=== PATIENT | female | born 1950 | race Caucasian/White ===

== ENCOUNTER 2020-02-28 15:10 | Inpatient (IN) ==
[2020-02-28] MEDS ORDERED: ACETAMINOPHEN 325 MG TABLET PO PRN (15:21)
[2020-02-28] MEDS ORDERED: SIMETHICONE CHEW 125 MG TABLET PO PRN (15:21)
[2020-02-28] MEDS ORDERED: BISACODYL 5 MG TABLET PO PRN (15:21)
[2020-02-28] MEDS ORDERED: POTASSIUM CHLORIDE 20 MEQ TABLET PO PRN (15:21)
[2020-02-28] MEDS ORDERED: ONDANSETRON 4 MG/2 ML VIAL IV PRN (15:21)
[2020-02-28] MEDS ORDERED: MORPHINE 4 MG/1 ML VIAL IV PRN (15:21)
[2020-02-28] MEDS ORDERED: diphenhydrAMINE CAP 25 MG CAPSULE PO PRN (15:21)
[2020-02-28] MEDS ORDERED: guaiFENesin/DM ER 600-30 MG TABLET PO PRN (15:21)
[2020-02-28] MEDS ORDERED: ALUMINUM/MAGNES/SIMETH MAX STR 30 ML UDCUP PO PRN (15:21)
[2020-02-28] MEDS ORDERED: DOCUSATE SODIUM 100 MG CAPSULE PO PRN (15:21)
[2020-02-28] MEDS ORDERED: MAGNESIUM SULF RIDER 4 GM in PREMIX 1 EACH IV PRN (15:21)
[2020-02-28] MEDS ORDERED: ZALEPLON 5 MG CAPSULE PO PRN (15:21)
[2020-02-28] MEDS ORDERED: PROMETHAZINE 25 MG TABLET PO PRN (15:21)
[2020-02-28] MEDS ORDERED: MAGNESIUM SULF RIDER 2 GM in PREMIX 1 EACH IV PRN (15:21)
[2020-02-28] MEDS ORDERED: hydrALAZINE 20 MG/1 ML VIAL IV PRN (15:21)
[2020-02-28 18:13] LABS: Basophils # 0.2 10*3/uL (0.0-0.2); Eosinophils # 1.2 10*3/uL (0.0-0.87); Eosinophils % 6.5 % (0.00-10.9); Hematocrit 39.5 VOL% (35.7-47.0); Hemoglobin 12.2 GM/DL (12.0-16.0); Immature Granulocytes % 0.6 %; Lymphocytes # 2.2 10*3/uL (1.4-4.0); Lymphocytes % 12.4 % (21.3-54.2); Mean Corpuscular HGB Conc 30.9 GM/DL (32-36); Mean Platelet Volume 9.6 FL (9.6-12.0); Monocytes % 6.4 % (1.7-12.7); Neutrophils % 73.1 % (38.7-73.9); Platelet Count 376 T/CUMM (130-400); Red Blood Count 4.44 MC/CUMM (3.8-5.5); Red Cell Distribution Width 13.4 % (9.3-17.3); White Blood Count 17.6 T/CUMM (4-12)
[2020-02-28] MEDS: FUROSEMIDE 40 MG/4 ML VIAL IV SCH (18:19)
[2020-02-28] MEDS: ENOXAPARIN 40 MG/0.4 ML SYRINGE SUBCUT SCH (18:23)
[2020-02-28 18:44] LABS: Albumin 3.3 G/DL (3.4-5.0); Bilirubin,Total 0.5 MG/DL (0.2-1.0); Calcium 8.5 MG/DL (8.5-10.1); Osmolality,Calculated 266.7 MOS/KG (273-304); Risk Ratio 3.16; Thyroid Stimulating Hormone 0.269 uIU/ml (0.358-3.74); Total Protein 7.7 G/DL (6.4-8.3); VLDL CHOLESTEROL 30.8 MG/DL
[2020-02-28 21:25] LABS: Total Protein 7.6 G/DL (6.4-8.3)
[2020-02-28] MEDS: ASPIRIN EC 81 MG TABLET PO SCH (21:32)
[2020-02-29 00:28] LABS: Apearance,Urine CLEAR (Clear); Bacteria,Urine Occasional /HPF (Few); Bilirubin,Urine Negative (Negative); Blood, Urine Negative (Negative); Glucose,Urine (UA) Negative (Negative); Hyaline Casts,Urine 4 /LPF (0-3); Ketones,Urine Negative (Negative); Mucus,Urine Occasional /LPF (Occasional); Nitrite,Urine Negative (Negative); Protein,Urine Negative; RBC,Urine <1 /HPF (0-4); Squamous Epithelial Cell,Urine Occasional /HPF (0-10); Urine Color Straw (Yellow); Urine Specific Gravity 1.012 (1.001-1.035); Urine Urobilinogen < 2.0 EU/DL (0.2-1.0); WBC,Urine 1 /HPF (0-6)
[2020-02-29] MEDS: ALBUTEROL/IPRATROPIUM 3 ML NEB RESP TX SCH ×5 (02:37→19:33)
[2020-02-29 06:52] LABS: Basophils # 0.2 10*3/uL (0.0-0.2); Eosinophils # 1.6 10*3/uL (0.0-0.87); Eosinophils % 11.2 % (0.00-10.9); Hematocrit 37.1 VOL% (35.7-47.0); Hemoglobin 11.9 GM/DL (12.0-16.0); Immature Granulocytes % 0.8 %; Immature Granulocytes Absolute 0.11 #; Lymphocytes % 13.7 % (21.3-54.2); Mean Corpuscular HGB Conc 32.1 GM/DL (32-36); Mean Corpuscular Volume 85.3 FL (87-102); Mean Platelet Volume 10.2 FL (9.6-12.0); Neutrophils % 65.3 % (38.7-73.9); Platelet Count 357 T/CUMM (130-400); Red Blood Count 4.35 MC/CUMM (3.8-5.5); Red Cell Distribution Width 13.4 % (9.3-17.3); White Blood Count 14.6 T/CUMM (4-12)
[2020-02-29 07:12] LABS: Eosinophils 9 % (0-10); Lymphocytes 15 % (20-55); Segmented Neutrophils 65 % (50-85); Total Cells Counted 100
[2020-02-29 07:14] LABS: Hypochromasia 1+; Microcytosis 1+; Platelet Estimate Adequate
[2020-02-29 07:28] LABS: Blood Urea Nitrogen 24 MG/DL (7-18); Calcium 8.8 MG/DL (8.5-10.1); Estimated Glom Filtration Rate 54 ML/MIN; Glucose 74 MG/DL (74-106); Osmolality,Calculated 266.5 MOS/KG (273-304); Troponin I < 0.015 NG/ML (0.00-0.045)
[2020-02-29 08:29] LABS: Immunoglobulin A (Chem) 451 MG/DL (70-400); Immunoglobulin G (Chem) 1380 MG/DL (700-1600); Immunoglobulin M (Chem) 109 MG/DL (40-230); Total Protein (Chem) 7.6 G/DL (6.4-8.3)
[2020-02-29] MEDS: PANTOPRAZOLE 40 MG TABLET PO SCH (08:44)
[2020-02-29] MEDS: FUROSEMIDE 40 MG/4 ML VIAL IV SCH (08:45)
[2020-02-29] MEDS: LEVOFLOXACIN 500 MG TABLET PO SCH (09:48)
[2020-02-29 10:16] LABS: Alpha 1 (SPE) 0.3 G/DL (0.1-0.4); Alpha 1 (SPE) Rel % 3.8 %; Alpha 2 (SPE) Rel % 12.9 %; Beta (SPE) 0.8 G/DL (0.5-1.1); Beta (SPE) Rel % 11.1 %; Gamma (SPE) 1.5 G/DL (0.7-1.7); Gamma (SPE) Rel % 19.2 %
[2020-02-29 14:52] LABS: INR 1.1; PT Patient Result 11.6 SECS (9.8-11.9)
[2020-02-29] MEDS: ASPIRIN EC 81 MG TABLET PO SCH (20:55)
[2020-02-29] MEDS: ASCORBIC ACID 500 MG TABLET PO SCH (20:57)
[2020-03-01] MEDS: ALBUTEROL/IPRATROPIUM 3 ML NEB RESP TX SCH ×4 (00:30→19:40)
[2020-03-01 06:37] LABS: Basophils # 0.1 10*3/uL (0.0-0.2); Eosinophils # 1.5 10*3/uL (0.0-0.87); Eosinophils % 11.3 % (0.00-10.9); Hematocrit 35.8 VOL% (35.7-47.0); Hemoglobin 11.7 GM/DL (12.0-16.0); Immature Granulocytes % 0.4 %; Immature Granulocytes Absolute 0.06 #; Lymphocytes # 1.7 10*3/uL (1.4-4.0); Lymphocytes % 12.4 % (21.3-54.2); Mean Corpuscular HGB Conc 32.7 GM/DL (32-36); Mean Corpuscular Volume 85.2 FL (87-102); Mean Platelet Volume 9.4 FL (9.6-12.0); Neutrophils % 66.9 % (38.7-73.9); Platelet Count 320 T/CUMM (130-400); Red Cell Distribution Width 13.2 % (9.3-17.3); White Blood Count 13.6 T/CUMM (4-12)
[2020-03-01 06:58] LABS: Calcium 8.5 MG/DL (8.5-10.1)
[2020-03-01 07:02] LABS: Total Protein 7.5 G/DL (6.4-8.3)
[2020-03-01 07:04] LABS: Anisocytosis 2+; Band Neutrophils 7 % (0-10); Eosinophils 13 % (0-10); Lymphocytes 13 % (20-55); Platelet Estimate Normal; Polychromasia Slight; Segmented Neutrophils 60 % (50-85); Total Cells Counted 100
[2020-03-01 07:05] LABS: Osmolality,Calculated 258.1 MOS/KG (273-304)
[2020-03-01] MEDS ORDERED: DIAZEPAM 5 MG TABLET PO ONE (08:50)
[2020-03-01 10:32] LABS: Total Protein (Chem) 7.5 G/DL (6.4-8.3)
[2020-03-01 10:33] LABS: Albumin (SPE) 3.9 G/DL (3.2-5.3); Albumin (SPE) Rel % 51.9 %; Alpha 1 (SPE) 0.3 G/DL (0.1-0.4); Alpha 1 (SPE) Rel % 3.8 %; Alpha 2 (SPE) 0.9 G/DL (0.4-1.0); Alpha 2 (SPE) Rel % 11.9 %; Beta (SPE) 0.9 G/DL (0.5-1.1); Beta (SPE) Rel % 11.4 %; Gamma (SPE) 1.6 G/DL (0.7-1.7)
[2020-03-01] MEDS: MULTIVITAMIN (CENTRUM) TABLET PO SCH (12:41)
[2020-03-01] MEDS: FUROSEMIDE 40 MG TABLET PO SCH (12:41)
[2020-03-01] MEDS: LEVOFLOXACIN 500 MG TABLET PO SCH (12:41)
[2020-03-01] MEDS: ASCORBIC ACID 500 MG TABLET PO SCH ×2 (12:41→22:08)
[2020-03-01] MEDS: PANTOPRAZOLE 40 MG TABLET PO SCH (12:42)
[2020-03-01] MEDS: MAGNESIUM CHLORIDE 64 MG TABLET PO SCH (12:42)
[2020-03-01] MEDS: CALCIUM (CARBONATE)/VITAMIN D 500 MG-200 UNIT TABLET PO SCH (12:46)
[2020-03-01] MEDS ORDERED: POTASSIUM CHLORIDE 20 MEQ TABLET PO ONE (13:46)
[2020-03-01] MEDS: METOPROLOL SUCCINATE XL 25 MG TABLET PO SCH (14:26)
[2020-03-01] MEDS: ENOXAPARIN 40 MG/0.4 ML SYRINGE SUBCUT SCH (16:53)
[2020-03-01] MEDS: methylPREDNISolone SOD SUC 40 MG/1 ML VIAL IV SCH (17:56)
[2020-03-01 19:20] LABS: Total Protein 24 Hr Ur Result 252 MG/24HR (0-149.1); Total Volume,Urine 1400 ML (400-2000)
[2020-03-01] MEDS: ASPIRIN EC 81 MG TABLET PO SCH (22:08)
[2020-03-02] MEDS: ALBUTEROL/IPRATROPIUM 3 ML NEB RESP TX SCH ×4 (02:04→19:40)
[2020-03-02] MEDS: methylPREDNISolone SOD SUC 40 MG/1 ML VIAL IV SCH ×2 (06:10→17:36)
[2020-03-02 06:16] LABS: Basophils # 0.1 10*3/uL (0.0-0.2); Basophils % 0.4 % (0.0-0.8); Eosinophils % 0.3 % (0.00-10.9); Hematocrit 36.3 VOL% (35.7-47.0); Hemoglobin 11.2 GM/DL (12.0-16.0); Immature Granulocytes % 0.8 %; Immature Granulocytes Absolute 0.09 #; Lymphocytes % 8.7 % (21.3-54.2); Mean Corpuscular HGB Conc 30.9 GM/DL (32-36); Mean Corpuscular Volume 88.3 FL (87-102); Mean Platelet Volume 9.8 FL (9.6-12.0); Monocytes % 3.1 % (1.7-12.7); Neutrophils % 86.7 % (38.7-73.9); Platelet Count 369 T/CUMM (130-400); Red Blood Count 4.11 MC/CUMM (3.8-5.5); Red Cell Distribution Width 13.2 % (9.3-17.3); White Blood Count 11.8 T/CUMM (4-12)
[2020-03-02 06:38] LABS: Calcium 9.4 MG/DL (8.5-10.1); Osmolality,Calculated 267.7 MOS/KG (273-304)
[2020-03-02] MEDS: MULTIVITAMIN (CENTRUM) TABLET PO SCH (08:52)
[2020-03-02] MEDS: CALCIUM (CARBONATE)/VITAMIN D 500 MG-200 UNIT TABLET PO SCH (08:52)
[2020-03-02] MEDS: METOPROLOL SUCCINATE XL 25 MG TABLET PO SCH (08:52)
[2020-03-02] MEDS: FUROSEMIDE 40 MG TABLET PO SCH (08:53)
[2020-03-02] MEDS: LEVOFLOXACIN 500 MG TABLET PO SCH (08:53)
[2020-03-02] MEDS: ASCORBIC ACID 500 MG TABLET PO SCH ×2 (08:53→21:15)
[2020-03-02] MEDS: MAGNESIUM CHLORIDE 64 MG TABLET PO SCH (08:54)
[2020-03-02] MEDS ORDERED: POTASSIUM CHLORIDE 20 MEQ TABLET PO SCH (09:00)
[2020-03-02] MEDS: ENOXAPARIN 40 MG/0.4 ML SYRINGE SUBCUT SCH (16:40)
[2020-03-02] MEDS: ASPIRIN EC 81 MG TABLET PO SCH (21:15)
[2020-03-03] MEDS: ALBUTEROL/IPRATROPIUM 3 ML NEB RESP TX SCH ×4 (01:00→19:00)
[2020-03-03] MEDS: methylPREDNISolone SOD SUC 40 MG/1 ML VIAL IV SCH ×2 (05:22→18:02)
[2020-03-03 06:26] LABS: Calcium 9.3 MG/DL (8.5-10.1); Osmolality,Calculated 268.8 MOS/KG (273-304)
[2020-03-03 06:27] LABS: Basophils % 0.2 % (0.0-0.8); Eosinophils # 0.3 10*3/uL (0.0-0.87); Eosinophils % 1.2 % (0.00-10.9); Hematocrit 32.8 VOL% (35.7-47.0); Hemoglobin 10.2 GM/DL (12.0-16.0); Immature Granulocytes Absolute 0.23 #; Lymphocytes # 1.8 10*3/uL (1.4-4.0); Lymphocytes % 7.3 % (21.3-54.2); Mean Corpuscular HGB Conc 31.1 GM/DL (32-36); Mean Corpuscular Volume 88.4 FL (87-102); Monocytes % 7.7 % (1.7-12.7); Neutrophils % 82.6 % (38.7-73.9); Platelet Count 350 T/CUMM (130-400); Red Blood Count 3.71 MC/CUMM (3.8-5.5); Red Cell Distribution Width 13.2 % (9.3-17.3)
[2020-03-03] MEDS: MAGNESIUM CHLORIDE 64 MG TABLET PO SCH (08:57)
[2020-03-03] MEDS: MULTIVITAMIN (CENTRUM) TABLET PO SCH (09:19)
[2020-03-03] MEDS: FUROSEMIDE 40 MG TABLET PO SCH (09:20)
[2020-03-03] MEDS: ASCORBIC ACID 500 MG TABLET PO SCH ×2 (09:20→23:00)
[2020-03-03] MEDS: METOPROLOL SUCCINATE XL 25 MG TABLET PO SCH (09:20)
[2020-03-03] MEDS: LEVOFLOXACIN 500 MG TABLET PO SCH (09:21)
[2020-03-03] MEDS: CALCIUM (CARBONATE)/VITAMIN D 500 MG-200 UNIT TABLET PO SCH (09:22)
[2020-03-03] MEDS: BISOPROLOL 5 MG TABLET PO SCH ×4 (10:31→23:00)
[2020-03-03 10:42] LABS: Band Neutrophils 5 % (0-10); Elliptocytes Few; Helmet Cells Slight; Hypochromasia 3+; Lymphocytes 10 % (20-55); Metamyelocytes 2 %; Platelet Estimate Normal; Polychromasia Slight; Schistocytes Few; Segmented Neutrophils 79 % (50-85); Total Cells Counted 100
[2020-03-03] MEDS: ENOXAPARIN 40 MG/0.4 ML SYRINGE SUBCUT SCH (16:01)
[2020-03-03] MEDS: ASPIRIN EC 81 MG TABLET PO SCH (23:00)
[2020-03-04] MEDS: ALBUTEROL/IPRATROPIUM 3 ML NEB RESP TX SCH ×4 (00:56→19:29)
[2020-03-04] MEDS: BISOPROLOL 5 MG TABLET PO SCH ×2 (04:51→10:55)
[2020-03-04 05:06] LABS: Basophils % 0.1 % (0.0-0.8); Eosinophils # 0.2 10*3/uL (0.0-0.87); Eosinophils % 1.2 % (0.00-10.9); Hematocrit 32.8 VOL% (35.7-47.0); Hemoglobin 9.9 GM/DL (12.0-16.0); Immature Granulocytes Absolute 0.17 #; Lymphocytes # 1.4 10*3/uL (1.4-4.0); Lymphocytes % 7.6 % (21.3-54.2); Mean Corpuscular HGB Conc 30.2 GM/DL (32-36); Mean Corpuscular Volume 89.9 FL (87-102); Mean Platelet Volume 9.8 FL (9.6-12.0); Monocytes % 7.5 % (1.7-12.7); Neutrophils % 82.6 % (38.7-73.9); Platelet Count 325 T/CUMM (130-400); Red Blood Count 3.65 MC/CUMM (3.8-5.5); Red Cell Distribution Width 13.2 % (9.3-17.3); White Blood Count 17.8 T/CUMM (4-12)
[2020-03-04 05:33] LABS: Calcium 9.1 MG/DL (8.5-10.1); Osmolality,Calculated 269.8 MOS/KG (273-304)
[2020-03-04] MEDS: methylPREDNISolone SOD SUC 40 MG/1 ML VIAL IV SCH ×2 (05:40→17:44)
[2020-03-04] MEDS: CALCIUM (CARBONATE)/VITAMIN D 500 MG-200 UNIT TABLET PO SCH (08:34)
[2020-03-04] MEDS: MAGNESIUM CHLORIDE 64 MG TABLET PO SCH (08:34)
[2020-03-04] MEDS: FUROSEMIDE 40 MG TABLET PO SCH (08:34)
[2020-03-04] MEDS: MULTIVITAMIN (CENTRUM) TABLET PO SCH (08:34)
[2020-03-04] MEDS: ASCORBIC ACID 500 MG TABLET PO SCH ×2 (08:34→21:27)
[2020-03-04] MEDS: LEVOFLOXACIN 500 MG TABLET PO SCH (10:55)
[2020-03-04] MEDS: ENOXAPARIN 40 MG/0.4 ML SYRINGE SUBCUT SCH (17:44)
[2020-03-04] MEDS: ASPIRIN EC 81 MG TABLET PO SCH (21:27)
[2020-03-05] MEDS: ALBUTEROL/IPRATROPIUM 3 ML NEB RESP TX SCH ×4 (01:00→22:38)
[2020-03-05] MEDS: methylPREDNISolone SOD SUC 40 MG/1 ML VIAL IV SCH ×2 (05:54→17:51)
[2020-03-05 07:04] LABS: 24 Hr Protein (Bench) 252 MG/24HR (0-149.1)
[2020-03-05] MEDS: ASCORBIC ACID 500 MG TABLET PO SCH ×2 (09:33→21:15)
[2020-03-05] MEDS: LEVOFLOXACIN 500 MG TABLET PO SCH (09:33)
[2020-03-05] MEDS: MAGNESIUM CHLORIDE 64 MG TABLET PO SCH (09:33)
[2020-03-05] MEDS: MULTIVITAMIN (CENTRUM) TABLET PO SCH (09:33)
[2020-03-05] MEDS: POTASSIUM CHLORIDE 8 MEQ CAPSULE PO SCH (09:33)
[2020-03-05] MEDS: FUROSEMIDE 40 MG TABLET PO SCH (09:34)
[2020-03-05] MEDS: CALCIUM (CARBONATE)/VITAMIN D 500 MG-200 UNIT TABLET PO SCH (09:34)
[2020-03-05] MEDS: METOPROLOL SUCCINATE XL 25 MG TABLET PO SCH (09:34)
[2020-03-05] MEDS: ENOXAPARIN 40 MG/0.4 ML SYRINGE SUBCUT SCH (17:52)
[2020-03-05] MEDS: ASPIRIN EC 81 MG TABLET PO SCH (21:15)
[2020-03-05] MEDS ORDERED: AZITHROMYCIN INJ 500 MG in SODIUM CHLORIDE 0.9% 250 ML IV SCH (21:30)
[2020-03-05] MEDS: cefTRIAXone 1,000 MG in SYRINGE 1 EACH IV SCH (23:25)
[2020-03-06 04:08] LABS: Basophils % 0.2 % (0.0-0.8); Eosinophils # 0.3 10*3/uL (0.0-0.87); Eosinophils % 1.6 % (0.00-10.9); Hematocrit 31.4 VOL% (35.7-47.0); Hemoglobin 9.7 GM/DL (12.0-16.0); Immature Granulocytes % 1.3 %; Immature Granulocytes Absolute 0.26 #; Lymphocytes # 1.6 10*3/uL (1.4-4.0); Lymphocytes % 7.7 % (21.3-54.2); Mean Corpuscular HGB Conc 30.9 GM/DL (32-36); Mean Corpuscular Volume 86.7 FL (87-102); Mean Platelet Volume 10.1 FL (9.6-12.0); Monocytes % 7.3 % (1.7-12.7); Neutrophils % 81.9 % (38.7-73.9); Platelet Count 316 T/CUMM (130-400); Red Blood Count 3.62 MC/CUMM (3.8-5.5); Red Cell Distribution Width 13.3 % (9.3-17.3); White Blood Count 20.2 T/CUMM (4-12)
[2020-03-06 04:19] LABS: ABG Base Excess 12.8 MMOL/L (-2.5-2.5); ABG HCO3 39.7 MMOL/L (20-26); ABG Oxygen Saturation 96.9 % (95-100); ABG PCO2 64.5 MM HG (35-48); ABG PH 7.407 (7.35-7.45); ABG PO2 89.6 MM HG (80-95); ABG TCO2 41.7 MMOL/L (23-27); Allen Test Positive
[2020-03-06 04:35] LABS: Osmolality,Calculated 274.4 MOS/KG (273-304)
[2020-03-06] MEDS: ALBUTEROL/IPRATROPIUM 3 ML NEB RESP TX SCH ×4 (04:35→19:37)
[2020-03-06 04:47] LABS: Band Neutrophils 1 % (0-10); Eosinophils 1 % (0-10); Hypochromasia 1+; Lymphocytes 6 % (20-55); Microcytosis Slight; Platelet Estimate Adequate; Segmented Neutrophils 86 % (50-85); Total Cells Counted 100
[2020-03-06] MEDS: methylPREDNISolone SOD SUC 40 MG/1 ML VIAL IV SCH ×2 (06:07→16:31)
[2020-03-06] MEDS: CALCIUM (CARBONATE)/VITAMIN D 500 MG-200 UNIT TABLET PO SCH (08:07)
[2020-03-06] MEDS: MAGNESIUM CHLORIDE 64 MG TABLET PO SCH (08:07)
[2020-03-06] MEDS: FUROSEMIDE 40 MG TABLET PO SCH (08:08)
[2020-03-06] MEDS: POTASSIUM CHLORIDE 8 MEQ CAPSULE PO SCH (08:08)
[2020-03-06] MEDS: MULTIVITAMIN (CENTRUM) TABLET PO SCH (08:08)
[2020-03-06] MEDS: ASCORBIC ACID 500 MG TABLET PO SCH ×2 (08:08→22:07)
[2020-03-06] MEDS: AZITHROMYCIN 250 MG TABLET PO SCH (08:08)
[2020-03-06] MEDS: METOPROLOL SUCCINATE XL 25 MG TABLET PO SCH (08:08)
[2020-03-06] MEDS: ENOXAPARIN 40 MG/0.4 ML SYRINGE SUBCUT SCH (16:31)
[2020-03-06] MEDS: ASPIRIN EC 81 MG TABLET PO SCH (22:07)
[2020-03-06] MEDS: cefTRIAXone 1,000 MG in SYRINGE 1 EACH IV SCH (22:10)
[2020-03-06] MEDS: guaiFENesin 200 MG/10 ML UDCUP PO PRN (23:12)
[2020-03-07] MEDS: ALBUTEROL/IPRATROPIUM 3 ML NEB RESP TX SCH ×2 (01:18→07:10)
[2020-03-07 04:57] LABS: Basophils % 0.2 % (0.0-0.8); Eosinophils # 0.3 10*3/uL (0.0-0.87); Eosinophils % 1.3 % (0.00-10.9); Hematocrit 31.5 VOL% (35.7-47.0); Hemoglobin 9.9 GM/DL (12.0-16.0); Immature Granulocytes % 1.7 %; Immature Granulocytes Absolute 0.41 #; Lymphocytes # 1.7 10*3/uL (1.4-4.0); Lymphocytes % 6.8 % (21.3-54.2); Mean Corpuscular HGB Conc 31.4 GM/DL (32-36); Mean Platelet Volume 10.3 FL (9.6-12.0); Monocytes % 8.6 % (1.7-12.7); Neutrophils % 81.4 % (38.7-73.9); Platelet Count 347 T/CUMM (130-400); Red Blood Count 3.62 MC/CUMM (3.8-5.5); Red Cell Distribution Width 13.4 % (9.3-17.3); White Blood Count 24.6 T/CUMM (4-12)
[2020-03-07 05:24] LABS: Calcium 9.1 MG/DL (8.5-10.1); Osmolality,Calculated 273.4 MOS/KG (273-304)
[2020-03-07 05:41] LABS: Band Neutrophils 6 % (0-10); Eosinophils 1 % (0-10); Hypochromasia 1+; Lymphocytes 4 % (20-55); Ovalocytes Slight; Platelet Estimate Adequate; Segmented Neutrophils 80 % (50-85); Total Cells Counted 100
[2020-03-07 05:42] LABS: Microcytosis Slight
[2020-03-07] MEDS: methylPREDNISolone SOD SUC 40 MG/1 ML VIAL IV SCH (05:54)
[2020-03-07] MEDS: FUROSEMIDE 40 MG TABLET PO SCH (08:41)
[2020-03-07] MEDS: MAGNESIUM CHLORIDE 64 MG TABLET PO SCH (08:41)
[2020-03-07] MEDS: MULTIVITAMIN (CENTRUM) TABLET PO SCH (08:41)
[2020-03-07] MEDS: AZITHROMYCIN 250 MG TABLET PO SCH (08:41)
[2020-03-07] MEDS: CALCIUM (CARBONATE)/VITAMIN D 500 MG-200 UNIT TABLET PO SCH (08:41)
[2020-03-07] MEDS: POTASSIUM CHLORIDE 8 MEQ CAPSULE PO SCH (08:41)
[2020-03-07] MEDS: METOPROLOL SUCCINATE XL 25 MG TABLET PO SCH (08:41)
[2020-03-07] MEDS: ASCORBIC ACID 500 MG TABLET PO SCH (08:42)
[2020-03-07] MEDS: guaiFENesin 200 MG/10 ML UDCUP PO PRN (08:45)
[2020-03-07 16:28] VITALS: BP 108/63
== END 2020-03-07 17:20 | disposition home or self-care (01) | DRG 987 ==
LOC: PREOBSVTOIN 15:33 → N.TELEN 16:02
PROVIDERS: ADMIT Internal Medicine Cardiovascular Disease; ATTEND Internal Medicine Cardiovascular Disease

== ENCOUNTER 2020-03-11 14:33 | Inpatient (IN) ==
[2020-03-11] MEDS ORDERED: methylPREDNISolone SOD SUC 125 MG/2 ML VIAL IV STA (15:35)
[2020-03-11] MEDS ORDERED: PIPERACILLIN/TAZOBACTAM 3,375 MG in SODIUM CHLORIDE 0.9% 100 ML IV STA (15:35)
[2020-03-11] MEDS ORDERED: FUROSEMIDE 40 MG/4 ML VIAL IV STA (15:35)
[2020-03-11 15:49] LABS: Basophils # 0.1 10*3/uL (0.0-0.2); Basophils % 0.2 % (0.0-0.8); Eosinophils # 0.5 10*3/uL (0.0-0.87); Eosinophils % 1.6 % (0.00-10.9); Hematocrit 32.7 VOL% (35.7-47.0); Hemoglobin 10.6 GM/DL (12.0-16.0); Immature Granulocytes % 1.4 %; Immature Granulocytes Absolute 0.43 #; Lymphocytes # 1.3 10*3/uL (1.4-4.0); Lymphocytes % 4.4 % (21.3-54.2); Mean Corpuscular HGB Conc 32.4 GM/DL (32-36); Mean Corpuscular Volume 84.7 FL (87-102); Mean Platelet Volume 10.1 FL (9.6-12.0); Monocytes % 5.8 % (1.7-12.7); Neutrophils % 86.6 % (38.7-73.9); Platelet Count 380 T/CUMM (130-400); Red Blood Count 3.86 MC/CUMM (3.8-5.5); Red Cell Distribution Width 13.9 % (9.3-17.3); White Blood Count 29.9 T/CUMM (4-12)
[2020-03-11 16:16] LABS: Bilirubin,Total 0.7 MG/DL (0.2-1.0); Calcium 8.2 MG/DL (8.5-10.1); Osmolality,Calculated 268.9 MOS/KG (273-304); Total Protein 6.9 G/DL (6.4-8.3)
[2020-03-11 16:41] LABS: Eosinophils 1 % (0-10); Lymphocytes 10 % (20-55); Segmented Neutrophils 82 % (50-85); Total Cells Counted 100
[2020-03-11] MEDS ORDERED: DEXTROSE 50% 25 GM/50 ML VIAL IV PRN (16:41)
[2020-03-11] MEDS ORDERED: ACETAMINOPHEN 325 MG TABLET PO PRN (16:41)
[2020-03-11] MEDS ORDERED: GLUCAGON 1 MG VIAL IM PRN (16:41)
[2020-03-11] MEDS ORDERED: ONDANSETRON 4 MG/2 ML VIAL IV PRN (16:41)
[2020-03-11] MEDS ORDERED: LEVOFLOXACIN INJ 750 MG in PREMIX 1 EACH IV SCH (17:00)
[2020-03-11 17:10] LABS: Ferritin 579.7 ng/ml (8-252)
[2020-03-11 17:39] LABS: INR 1.1; PT Patient Result 11.4 SECS (9.8-11.9)
[2020-03-11] MEDS ORDERED: ASCORBIC ACID 500 MG TABLET PO SCH (21:00)
[2020-03-11] MEDS: ASPIRIN EC 81 MG TABLET PO SCH (21:55)
[2020-03-11] MEDS: ENOXAPARIN 40 MG/0.4 ML SYRINGE SUBCUT SCH (21:55)
[2020-03-11] MEDS: PIPERACILLIN/TAZOBACTAM 3,375 MG in SODIUM CHLORIDE 0.9% 100 ML IV SCH (21:58)
[2020-03-11] MEDS: ASCORBIC ACID 500 MG TABLET PO SCH (22:06)
[2020-03-12] MEDS: PIPERACILLIN/TAZOBACTAM 3,375 MG in SODIUM CHLORIDE 0.9% 100 ML IV SCH ×2 (06:17→17:07)
[2020-03-12 07:02] LABS: Basophils % 0.1 % (0.0-0.8); Eosinophils % 0.1 % (0.00-10.9); Hematocrit 31.6 VOL% (35.7-47.0); Hemoglobin 10.2 GM/DL (12.0-16.0); Immature Granulocytes % 1.5 %; Immature Granulocytes Absolute 0.32 #; Lymphocytes # 1.3 10*3/uL (1.4-4.0); Lymphocytes % 6.2 % (21.3-54.2); Mean Corpuscular HGB Conc 32.3 GM/DL (32-36); Mean Corpuscular Volume 85.4 FL (87-102); Mean Platelet Volume 9.7 FL (9.6-12.0); Monocytes % 5.5 % (1.7-12.7); Neutrophils % 86.6 % (38.7-73.9); Platelet Count 373 T/CUMM (130-400); Red Cell Distribution Width 13.7 % (9.3-17.3); White Blood Count 21.7 T/CUMM (4-12)
[2020-03-12 07:22] LABS: Band Neutrophils 2 % (0-10); Lymphocytes 4 % (20-55); Platelet Estimate Adequate; Segmented Neutrophils 91 % (50-85); Total Cells Counted 100
[2020-03-12 07:23] LABS: Hypochromasia 1+
[2020-03-12 07:24] LABS: Albumin 2.8 G/DL (3.4-5.0); Bilirubin,Total 2.2 MG/DL (0.2-1.0); Calcium 7.8 MG/DL (8.5-10.1); Osmolality,Calculated 270.9 MOS/KG (273-304); Total Protein 7.2 G/DL (6.4-8.3)
[2020-03-12] MEDS ORDERED: NON-FORMULARY MEDICATION (Magnesium Chloride [Slow-Mag] 71.5 MG) PO SCH (09:00)
[2020-03-12] MEDS ORDERED: POTASSIUM CHLORIDE 8 MEQ CAPSULE PO SCH (09:00)
[2020-03-12] MEDS ORDERED: ALBUTEROL 2.5 MG/3 ML NEB RESP TX PRN (09:46)
[2020-03-12] MEDS: methylPREDNISolone SOD SUC 40 MG/1 ML VIAL IV SCH ×2 (09:48→17:37)
[2020-03-12] MEDS: PANTOPRAZOLE 40 MG TABLET PO SCH (09:49)
[2020-03-12] MEDS: METOPROLOL SUCCINATE XL 25 MG TABLET PO SCH (09:49)
[2020-03-12] MEDS: FUROSEMIDE 40 MG TABLET PO SCH (09:49)
[2020-03-12] MEDS: CALCIUM (CARBONATE)/VITAMIN D 600 MG-400 UNIT TABLET PO SCH (09:49)
[2020-03-12] MEDS: MULTIVITAMIN (CENTRUM) TABLET PO SCH (09:49)
[2020-03-12] MEDS: ASCORBIC ACID 500 MG TABLET PO SCH ×2 (09:50→21:12)
[2020-03-12] MEDS ORDERED: POTASSIUM CHLORIDE 20 MEQ TABLET PO ONE (10:00)
[2020-03-12] MEDS ORDERED: LEVOFLOXACIN INJ 750 MG in PREMIX 1 EACH IV SCH (10:00)
[2020-03-12] MEDS ORDERED: AMIODARONE INJ 450 MG in DEXTROSE 5% 241 ML IV SCH (10:00)
[2020-03-12] MEDS ORDERED: AMIODARONE INJ 150 MG in DEXTROSE 5% 100 ML IV ONE (10:00)
[2020-03-12] MEDS: ALBUTEROL/IPRATROPIUM 3 ML NEB RESP TX SCH ×3 (10:45→20:06)
[2020-03-12] MEDS ORDERED: ALBUTEROL 2.5 MG/3 ML NEB RESP TX SCH (11:00)
[2020-03-12] MEDS ORDERED: SODIUM CHLOR 0.9% KCL 40 MEQ 40 MEQ/1,000 ML BAG IV SCH (12:00)
[2020-03-12] MEDS: DOXYCYCLINE HYCLATE INJ 100 MG in SODIUM CHLORIDE 0.9% 100 ML IV SCH (14:56)
[2020-03-12] MEDS: POTASSIUM CHLORIDE 20 MEQ TABLET PO SCH ×2 (14:57→21:12)
[2020-03-12] MEDS: AMIODARONE INJ 450 MG in DEXTROSE 5% 241 ML IV SCH (17:07)
[2020-03-12] MEDS: ASPIRIN EC 81 MG TABLET PO SCH (21:12)
[2020-03-12] MEDS: ENOXAPARIN 40 MG/0.4 ML SYRINGE SUBCUT SCH (21:12)
[2020-03-13] MEDS: ALBUTEROL/IPRATROPIUM 3 ML NEB RESP TX SCH ×7 (00:10→23:35)
[2020-03-13] MEDS: DOXYCYCLINE HYCLATE INJ 100 MG in SODIUM CHLORIDE 0.9% 100 ML IV SCH ×2 (00:16→16:19)
[2020-03-13] MEDS: methylPREDNISolone SOD SUC 40 MG/1 ML VIAL IV SCH ×3 (02:29→17:34)
[2020-03-13] MEDS: PIPERACILLIN/TAZOBACTAM 3,375 MG in SODIUM CHLORIDE 0.9% 100 ML IV SCH ×3 (02:29→17:33)
[2020-03-13 04:30] LABS: Allen Test Positive
[2020-03-13 04:31] LABS: ABG Base Excess 5.4 MMOL/L (-2.5-2.5); ABG HCO3 29.1 MMOL/L (20-26); ABG Oxygen Saturation 87.8 % (95-100); ABG PCO2 45.3 MM HG (35-48); ABG PH 7.434 (7.35-7.45); ABG TCO2 27.7 MMOL/L (23-27)
[2020-03-13 06:15] LABS: Basophils # 0.1 10*3/uL (0.0-0.2); Basophils % 0.2 % (0.0-0.8); Eosinophils # 0.2 10*3/uL (0.0-0.87); Eosinophils % 0.7 % (0.00-10.9); Hematocrit 30.4 VOL% (35.7-47.0); Hemoglobin 9.6 GM/DL (12.0-16.0); Immature Granulocytes % 1.6 %; Immature Granulocytes Absolute 0.46 #; Lymphocytes # 1.2 10*3/uL (1.4-4.0); Lymphocytes % 4.3 % (21.3-54.2); Mean Corpuscular HGB Conc 31.6 GM/DL (32-36); Mean Corpuscular Volume 86.6 FL (87-102); Mean Platelet Volume 10.1 FL (9.6-12.0); Monocytes % 3.8 % (1.7-12.7); Neutrophils % 89.4 % (38.7-73.9); Platelet Count 392 T/CUMM (130-400); Red Blood Count 3.51 MC/CUMM (3.8-5.5); Red Cell Distribution Width 14.1 % (9.3-17.3); White Blood Count 28.9 T/CUMM (4-12)
[2020-03-13 06:40] LABS: Band Neutrophils 2 % (0-10); Eosinophils 1 % (0-10); Hypochromasia 1+; Lymphocytes 3 % (20-55); Ovalocytes Slight; Platelet Estimate Adequate; Segmented Neutrophils 90 % (50-85); Total Cells Counted 100
[2020-03-13 06:56] LABS: Calcium 8.3 MG/DL (8.5-10.1); Osmolality,Calculated 273.7 MOS/KG (273-304)
[2020-03-13] MEDS: CALCIUM (CARBONATE)/VITAMIN D 600 MG-400 UNIT TABLET PO SCH (08:45)
[2020-03-13] MEDS: ASCORBIC ACID 500 MG TABLET PO SCH ×2 (08:46→21:28)
[2020-03-13] MEDS: METOPROLOL SUCCINATE XL 25 MG TABLET PO SCH (08:46)
[2020-03-13] MEDS: FOLIC ACID 1 MG TABLET PO SCH (08:46)
[2020-03-13] MEDS: POTASSIUM CHLORIDE 20 MEQ TABLET PO SCH (08:46)
[2020-03-13] MEDS: FUROSEMIDE 40 MG TABLET PO SCH (08:46)
[2020-03-13] MEDS: PANTOPRAZOLE 40 MG TABLET PO SCH (08:46)
[2020-03-13] MEDS ORDERED: CYANOCOBALAMIN 1000 MCG/1 ML VIAL IM ONE (09:00)
[2020-03-13] MEDS: AMIODARONE INJ 450 MG in DEXTROSE 5% 241 ML IV SCH (09:05)
[2020-03-13] MEDS: MULTIVITAMIN (CENTRUM) TABLET PO SCH (10:56)
[2020-03-13] MEDS: AMIODARONE 200 MG TABLET PO SCH ×2 (12:47→21:28)
[2020-03-13] MEDS: ASPIRIN EC 81 MG TABLET PO SCH (21:27)
[2020-03-13] MEDS: ENOXAPARIN 40 MG/0.4 ML SYRINGE SUBCUT SCH (21:28)
[2020-03-14] MEDS: methylPREDNISolone SOD SUC 40 MG/1 ML VIAL IV SCH ×3 (00:54→17:00)
[2020-03-14] MEDS: PIPERACILLIN/TAZOBACTAM 3,375 MG in SODIUM CHLORIDE 0.9% 100 ML IV SCH ×3 (00:58→21:26)
[2020-03-14] MEDS: ALBUTEROL/IPRATROPIUM 3 ML NEB RESP TX SCH ×6 (04:58→23:31)
[2020-03-14] MEDS: DOXYCYCLINE HYCLATE INJ 100 MG in SODIUM CHLORIDE 0.9% 100 ML IV SCH ×2 (05:21→15:11)
[2020-03-14 05:33] LABS: Basophils # 0.1 10*3/uL (0.0-0.2); Basophils % 0.2 % (0.0-0.8); Eosinophils % 0.1 % (0.00-10.9); Hematocrit 32.2 VOL% (35.7-47.0); Hemoglobin 10.1 GM/DL (12.0-16.0); Immature Granulocytes % 2.2 %; Immature Granulocytes Absolute 0.79 #; Lymphocytes # 1.2 10*3/uL (1.4-4.0); Lymphocytes % 3.4 % (21.3-54.2); Mean Corpuscular HGB Conc 31.4 GM/DL (32-36); Mean Corpuscular Volume 87.7 FL (87-102); Mean Platelet Volume 10.1 FL (9.6-12.0); Monocytes % 3.4 % (1.7-12.7); Neutrophils % 90.7 % (38.7-73.9); Platelet Count 413 T/CUMM (130-400); Red Blood Count 3.67 MC/CUMM (3.8-5.5); Red Cell Distribution Width 13.8 % (9.3-17.3); White Blood Count 35.5 T/CUMM (4-12)
[2020-03-14 06:05] LABS: Calcium 8.3 MG/DL (8.5-10.1); Osmolality,Calculated 263.2 MOS/KG (273-304)
[2020-03-14 06:09] LABS: Anisocytosis 1+; Band Neutrophils 20 % (0-10); Lymphocytes 3 % (20-55); Macrocytosis Slight; Platelet Estimate Normal; Segmented Neutrophils 73 % (50-85); Total Cells Counted 100
[2020-03-14] MEDS ORDERED: LEUCOVORIN IV ONE ×2 (08:19→09:00)
[2020-03-14] MEDS ORDERED: DEXTROSE 5% IV ONE ×2 (08:19→09:00)
[2020-03-14] MEDS ORDERED: POTASSIUM CHLORIDE 20 MEQ/15 ML UDCUP PO SCH (09:00)
[2020-03-14] MEDS: POTASSIUM CHLORIDE 20 MEQ/15 ML UDCUP PO SCH (10:38)
[2020-03-14] MEDS: AMIODARONE 200 MG TABLET PO SCH ×2 (10:39→21:25)
[2020-03-14] MEDS: ASCORBIC ACID 500 MG TABLET PO SCH ×2 (10:39→21:25)
[2020-03-14] MEDS: CALCIUM (CARBONATE)/VITAMIN D 600 MG-400 UNIT TABLET PO SCH (10:40)
[2020-03-14] MEDS: PANTOPRAZOLE 40 MG TABLET PO SCH (10:40)
[2020-03-14] MEDS: FOLIC ACID 1 MG TABLET PO SCH (10:40)
[2020-03-14] MEDS: METOPROLOL SUCCINATE XL 25 MG TABLET PO SCH (10:40)
[2020-03-14] MEDS: FUROSEMIDE 40 MG TABLET PO SCH (10:40)
[2020-03-14] MEDS: ASPIRIN EC 81 MG TABLET PO SCH (21:25)
[2020-03-14] MEDS: ENOXAPARIN 40 MG/0.4 ML SYRINGE SUBCUT SCH (21:26)
[2020-03-15] MEDS: methylPREDNISolone SOD SUC 40 MG/1 ML VIAL IV SCH ×3 (01:27→17:12)
[2020-03-15] MEDS: PIPERACILLIN/TAZOBACTAM 3,375 MG in SODIUM CHLORIDE 0.9% 100 ML IV SCH ×3 (02:12→18:26)
[2020-03-15] MEDS: DOXYCYCLINE HYCLATE INJ 100 MG in SODIUM CHLORIDE 0.9% 100 ML IV SCH (03:03)
[2020-03-15] MEDS: ALBUTEROL/IPRATROPIUM 3 ML NEB RESP TX SCH ×6 (04:23→23:14)
[2020-03-15] MEDS: NOREPINEPHRINE 8 MG in SODIUM CHLORIDE 0.9% 242 ML IV PRN ×2 (04:30→17:28)
[2020-03-15] MEDS ORDERED: ETOMIDATE 20 MG/10 ML VIAL IV ONE (05:03)
[2020-03-15] MEDS ORDERED: SODIUM CHLORIDE 0.9% 1,000 ML IV ONE (05:03)
[2020-03-15] MEDS ORDERED: NOREPINEPHRINE 4 MG/4 ML VIAL IV ONE (05:04)
[2020-03-15 05:35] LABS: Basophils # 0.1 10*3/uL (0.0-0.2); Basophils % 0.2 % (0.0-0.8); Hematocrit 29.7 VOL% (35.7-47.0); Immature Granulocytes % 2.9 %; Immature Granulocytes Absolute 1.13 #; Lymphocytes # 1.3 10*3/uL (1.4-4.0); Lymphocytes % 3.3 % (21.3-54.2); Mean Corpuscular HGB Conc 30.3 GM/DL (32-36); Mean Platelet Volume 9.9 FL (9.6-12.0); Monocytes % 7.4 % (1.7-12.7); NRBC # 0.02 10*3/uL; Neutrophils % 86.2 % (38.7-73.9); Platelet Count 361 T/CUMM (130-400); Red Blood Count 3.23 MC/CUMM (3.8-5.5); Red Cell Distribution Width 13.8 % (9.3-17.3); White Blood Count 38.5 T/CUMM (4-12)
[2020-03-15 05:36] LABS: ABG Base Excess -1.7 MMOL/L (-2.5-2.5); ABG Oxygen Saturation 99.4 % (95-100); ABG TCO2 29.1 MMOL/L (23-27); Allen Test Positive; Pt O2 Delivery Device Ventilator
[2020-03-15 05:39] LABS: ABG PCO2 94.8 MM HG (35-48)
[2020-03-15 05:55] LABS: Osmolality,Calculated 279.5 MOS/KG (273-304)
[2020-03-15 06:00] LABS: Band Neutrophils 3 % (0-10); Lymphocytes 1 % (20-55); Nucleated Red Blood Cells 1 (0-5); Segmented Neutrophils 90 % (50-85); Total Cells Counted 100
[2020-03-15 06:01] LABS: Hypochromasia 1+; Microcytosis Slight; Ovalocytes Slight; Platelet Estimate Normal
[2020-03-15] MEDS: SODIUM CHLORIDE 0.9% 1,000 ML IV SCH ×4 (06:20→23:05)
[2020-03-15 06:49] LABS: ABG Base Excess 0.5 MMOL/L (-2.5-2.5); ABG HCO3 24.8 MMOL/L (20-26); ABG Oxygen Saturation 97.6 % (95-100); ABG PCO2 66.4 MM HG (35-48); ABG PH 7.249 (7.35-7.45); ABG PO2 88.4 MM HG (80-95); ABG TCO2 27.1 MMOL/L (23-27)
[2020-03-15] MEDS: FUROSEMIDE 40 MG TABLET PO SCH (08:27)
[2020-03-15] MEDS: ASCORBIC ACID 500 MG TABLET PO SCH ×2 (08:27→23:01)
[2020-03-15] MEDS: FOLIC ACID 1 MG TABLET PO SCH (08:28)
[2020-03-15] MEDS: AMIODARONE 200 MG TABLET PO SCH ×2 (08:28→23:01)
[2020-03-15] MEDS: CALCIUM (CARBONATE)/VITAMIN D 600 MG-400 UNIT TABLET PO SCH (08:28)
[2020-03-15] MEDS: METOPROLOL SUCCINATE XL 25 MG TABLET PO SCH (08:28)
[2020-03-15] MEDS: PANTOPRAZOLE 40 MG TABLET PO SCH (08:29)
[2020-03-15] MEDS: POTASSIUM CHLORIDE 20 MEQ/15 ML UDCUP PO SCH (09:22)
[2020-03-15] MEDS ORDERED: VECURONIUM 100 MG in SODIUM CHLORIDE 0.9% 100 ML IV SCH (16:30)
[2020-03-15] MEDS: ENOXAPARIN 40 MG/0.4 ML SYRINGE SUBCUT SCH (23:01)
[2020-03-16] MEDS: NOREPINEPHRINE 8 MG in SODIUM CHLORIDE 0.9% 242 ML IV PRN (00:15)
[2020-03-16] MEDS: ASPIRIN EC 81 MG TABLET PO SCH ×2 (01:00→21:08)
[2020-03-16] MEDS: methylPREDNISolone SOD SUC 40 MG/1 ML VIAL IV SCH ×3 (01:57→17:59)
[2020-03-16] MEDS: ALBUTEROL/IPRATROPIUM 3 ML NEB RESP TX SCH ×6 (03:07→23:37)
[2020-03-16] MEDS: PIPERACILLIN/TAZOBACTAM 3,375 MG in SODIUM CHLORIDE 0.9% 100 ML IV SCH ×3 (03:21→18:28)
[2020-03-16 04:50] LABS: ABG Base Excess -2.4 MMOL/L (-2.5-2.5); ABG HCO3 22.9 MMOL/L (20-26); ABG Oxygen Saturation 98.7 % (95-100); ABG PCO2 41.8 MM HG (35-48); ABG PH 7.357 (7.35-7.45); ABG PO2 161.5 MM HG (80-95); ABG TCO2 24.2 MMOL/L (23-27); Allen Test Positive; Pt O2 Delivery Device Ventilator
[2020-03-16 05:01] LABS: Basophils % 0.1 % (0.0-0.8); Hematocrit 27.6 VOL% (35.7-47.0); Hemoglobin 8.8 GM/DL (12.0-16.0); Immature Granulocytes % 2.2 %; Immature Granulocytes Absolute 0.72 #; Lymphocytes # 0.9 10*3/uL (1.4-4.0); Lymphocytes % 2.8 % (21.3-54.2); Mean Corpuscular HGB Conc 31.9 GM/DL (32-36); Mean Corpuscular Volume 87.9 FL (87-102); Mean Platelet Volume 9.9 FL (9.6-12.0); Monocytes % 4.9 % (1.7-12.7); NRBC # 0.05 10*3/uL; Platelet Count 308 T/CUMM (130-400); Red Blood Count 3.14 MC/CUMM (3.8-5.5); Red Cell Distribution Width 14.2 % (9.3-17.3); White Blood Count 33.1 T/CUMM (4-12)
[2020-03-16 05:17] LABS: Calcium 8.2 MG/DL (8.5-10.1)
[2020-03-16 05:21] LABS: Prealbumin 13.6 MG/DL (20-40)
[2020-03-16 05:32] LABS: Band Neutrophils 2 % (0-10); Segmented Neutrophils 96 % (50-85); Total Cells Counted 100
[2020-03-16 05:34] LABS: Platelet Estimate Normal
[2020-03-16 05:36] LABS: Hypochromasia 2+
[2020-03-16] MEDS: SODIUM CHLORIDE 0.9% 1,000 ML IV SCH ×4 (06:53→22:33)
[2020-03-16] MEDS ORDERED: VECURONIUM 10 MG VIAL IV PRN (07:45)
[2020-03-16] MEDS: PHENYLEPHRINE DRIP 40 MG/250 ML PREMIX IV PRN ×2 (08:06→17:21)
[2020-03-16] MEDS: AMIODARONE 200 MG TABLET PO SCH ×2 (08:07→20:14)
[2020-03-16] MEDS: FOLIC ACID 1 MG TABLET PO SCH (08:07)
[2020-03-16] MEDS: ASCORBIC ACID 500 MG TABLET PO SCH ×2 (08:07→20:14)
[2020-03-16] MEDS: PANTOPRAZOLE 40 MG TABLET PO SCH (08:07)
[2020-03-16] MEDS: ENOXAPARIN 40 MG/0.4 ML SYRINGE SUBCUT SCH (20:15)
[2020-03-17] MEDS: PHENYLEPHRINE DRIP 40 MG/250 ML PREMIX IV PRN ×3 (00:14→14:21)
[2020-03-17] MEDS: SODIUM CHLORIDE 0.9% 1,000 ML IV SCH ×3 (00:14→07:51)
[2020-03-17] MEDS: methylPREDNISolone SOD SUC 40 MG/1 ML VIAL IV SCH ×2 (02:31→08:39)
[2020-03-17] MEDS: ALBUTEROL/IPRATROPIUM 3 ML NEB RESP TX SCH ×3 (02:48→11:00)
[2020-03-17] MEDS: PIPERACILLIN/TAZOBACTAM 3,375 MG in SODIUM CHLORIDE 0.9% 100 ML IV SCH ×2 (04:58→10:08)
[2020-03-17 05:21] LABS: ABG Base Excess 0.3 MMOL/L (-2.5-2.5); ABG HCO3 24.7 MMOL/L (20-26); ABG PCO2 44.4 MM HG (35-48); ABG PO2 90.2 MM HG (80-95); ABG TCO2 24.1 MMOL/L (23-27); Allen Test Positive; Pt O2 Delivery Device Ventilator
[2020-03-17 05:41] LABS: Basophils # 0.1 10*3/uL (0.0-0.2); Basophils % 0.2 % (0.0-0.8); Hematocrit 24.5 VOL% (35.7-47.0); Hemoglobin 7.6 GM/DL (12.0-16.0); Immature Granulocytes % 3.1 %; Immature Granulocytes Absolute 0.92 #; Lymphocytes % 3.3 % (21.3-54.2); Mean Corpuscular Volume 89.4 FL (87-102); Mean Platelet Volume 10.4 FL (9.6-12.0); Monocytes % 5.3 % (1.7-12.7); NRBC # 0.11 10*3/uL; Neutrophils % 88.1 % (38.7-73.9); Platelet Count 312 T/CUMM (130-400); Red Blood Count 2.74 MC/CUMM (3.8-5.5); White Blood Count 29.7 T/CUMM (4-12)
[2020-03-17 05:54] LABS: Calcium 7.9 MG/DL (8.5-10.1); Osmolality,Calculated 295.3 MOS/KG (273-304)
[2020-03-17 08:27] LABS: Band Neutrophils 16 % (0-10); Lymphocytes 2 % (20-55); Metamyelocytes 1 %; Platelet Estimate Normal; Segmented Neutrophils 78 % (50-85); Total Cells Counted 100
[2020-03-17 08:28] LABS: Anisocytosis 2+; Basophilic Stippling Slight; Macrocytosis Slight; Ovalocytes Few; Poikilocytosis Slight
[2020-03-17] MEDS: PANTOPRAZOLE 40 MG TABLET PO SCH (08:43)
[2020-03-17] MEDS: AMIODARONE 200 MG TABLET PO SCH (08:43)
[2020-03-17] MEDS: ASCORBIC ACID 500 MG TABLET PO SCH (08:43)
[2020-03-17] MEDS: FOLIC ACID 1 MG TABLET PO SCH (08:43)
[2020-03-17] MEDS ORDERED: MORPHINE 4 MG/1 ML VIAL IV PRN ×2 (10:18→14:30)
[2020-03-17] MEDS ORDERED: LORazepam 2 MG/1 ML VIAL IV PRN (14:30)
[2020-03-17 15:25] VITALS: BP 105/59
== END 2020-03-17 16:30 | disposition expired | DRG 208 ==
LOC: N.ED 14:33 → SUATTDRO 16:41 → N.EDINP 16:41 → N.2E 20:37 → N.4E 03-13 11:14 → N.ICU 03-15 05:34
PROVIDERS: ADMIT Internal Medicine; ATTEND Internal Medicine